=== PATIENT | female | born 1995 | race Caucasian/White ===

== ENCOUNTER 2020-06-11 09:36 | Emergency (ER) | payer OTHER ==
[~2020-06-11] VITALS: Ht 157.5 cm; Wt 86.2 kg
[~2020-06-11 09:36] MED LIST: CLONAZEPAM 0.50.5 M1 PO; IBUPROFEN 800800 M1 PO; NORCO 5-325 TA1 EAC1 PO; OLANZAPINE ODT5 MG PO; SERTRALINE HCL100 MG PO; SPIRONOLACTONE50 MG PO
[2020-06-11] MEDS ORDERED: KEFLEX500 M1 PO (12:04)
[2020-06-11 12:09] VITALS: BP 119/74
== END 2020-06-11 12:09 | disposition home or self-care (01) ==
LOC: ER 09:36
DX: I80.8 Phlebitis and thrombophlebitis of other sites (principal); L03.114 Cellulitis of left upper limb; Z79.899 Other long term (current) drug therapy; Z88.8 Allergy status to other drugs, medicaments and biological substances

== ENCOUNTER 2020-07-16 12:28 | Emergency (ER) | payer OTHER ==
[~2020-07-16] VITALS: Ht 157.5 cm; Wt 86.2 kg
[~2020-07-16 12:28] MED LIST changes: +CYCLOBENZAPRINE5 MG PO; +KEFLEX500 M1 PO; +NORCO 5-325 TA1 EAC2 PO
[2020-07-16 12:55] LABS: URINE BILIRUBIN NEGATIVE (Negative); URINE BLOOD 3+ (Negative); URINE CLARITY CLEAR; URINE COLOR YELLOW; URINE GLUCOSE-RANDOM* NEGATIVE (Negative); URINE KETONES NEGATIVE (Negative); URINE LEUKOCYTES-REFLEX NEGATIVE (Negative); URINE NITRITE-REFLEX NEGATIVE (Negative); URINE PROTEIN (DIPSTICK) NEGATIVE (Negative); URINE SPECIFIC GRAVITY >= 1.030 (1.005-1.035); URINE UROBILINOGEN 0.2 E.U./dl (0.2-1.0)
[2020-07-16 13:50] LABS: SQUAMOUS 4-10 Moderate /LPF (0-3)
[2020-07-16 13:51] LABS: BACTERIA-REFLEX 1-9 Few /HPF (None Seen); CRYSTALS None Seen /LPF (None Seen); HYALINE CASTS 0-3 Few /LPF (None Seen); URINE RBC 0-2 Rare /HPF (0-2); URINE WBC-REFLEX 0-5 Rare /HPF (0-5)
[2020-07-16 14:42] LABS: ABSOLUTE NEUTROPHILS 7.2 thou/uL (1.4-8.2); BASOPHILS 0.5 % (0.0-2.0); EOSINOPHILS 0.4 % (0.0-3.0); HEMATOCRIT 43.9 % (37.0-47.0); MCH 30.4 pg (26.0-34.0); MCHC 34.2 g/dL (28.0-37.0); PLATELET COUNT 280 thou/uL (150-400); POLYS 74.1 % (36.0-66.0); RBC 4.94 mil/uL (4.20-5.00); RDW 13.5 % (10.5-14.5); WBC 9.7 thou/uL (4.0-11.0)
[2020-07-16 14:50] LABS: CALCIUM 9.3 mg/dL (8.5-10.1); CREATININE 1.1 mg/dL (0.6-1.0); POTASSIUM 4.4 mmol/L (3.5-5.1)
[2020-07-16 14:56] LABS: ALBUMIN 3.6 g/dL (3.4-5.0); TOTAL BILIRUBIN 0.2 mg/dL (0.2-1.0); TOTAL PROTEIN 7.8 g/dL (6.4-8.2)
[2020-07-16] MEDS ORDERED: ZOFRAN ODT4 MG DISSOLVE (15:08)
[2020-07-16 15:20] VITALS: BP 111/64
== END 2020-07-16 15:21 | disposition home or self-care (01) ==
LOC: ER 12:28
PROVIDERS: Physician Assistant
DX: E86.0 Dehydration (principal); R19.7 Diarrhea, unspecified; R14.0 Abdominal distension (gaseous); R10.30 Lower abdominal pain, unspecified; R11.0 Nausea; F32.9 Major depressive disorder, single episode, unspecified; F41.9 Anxiety disorder, unspecified; Z98.890 Other specified postprocedural states; Z79.899 Other long term (current) drug therapy; Z88.8 Allergy status to other drugs, medicaments and biological substances